=== PATIENT | male | born 1960 | race Caucasian/White ===

== ENCOUNTER → 2018-05-03 | Outpatient (CLI) | payer OTHER | END | disposition home or self-care (01) | LOC: RAD 09:59 | PROVIDERS: ATTEND Orthopaedic Surgery | DX: M51.35 Other intervertebral disc degeneration, thoracolumbar region (principal); M51.37 Other intervertebral disc degeneration, lumbosacral region; M48.05 Spinal stenosis, thoracolumbar region; M48.07 Spinal stenosis, lumbosacral region; M41.86 Other forms of scoliosis, lumbar region; G95.89 Other specified diseases of spinal cord | CPT/HCPCS: 72110 ==

== ENCOUNTER → 2020-01-25 | Outpatient (CLI) | payer OTHER ==
[~2020-01-25] MED LIST: ALLO300T PO; AMLO1CAP3 PO; METO25TA91 PO
== END | disposition home or self-care (01) ==
LOC: STAR 09:52
PROVIDERS: ATTEND Anesthesiology
DX: Z01.812 Encounter for preprocedural laboratory examination (principal); Z20.828 Contact with and (suspected) exposure to other viral communicable diseases
CPT/HCPCS: 36415; 87635

== ENCOUNTER → 2020-01-25 | Outpatient (CLI) | payer OTHER ==
[~2020-01-25] MED LIST changes: +OMNIPAQUE 350 MG/ML, 150 ML BOTTLE ONE
== END | disposition home or self-care (01) ==
LOC: CFH 08:54
PROVIDERS: ATTEND Internal Medicine Cardiovascular Disease
DX: I48.91 Unspecified atrial fibrillation (principal)
CPT/HCPCS: 71046; 75572; Q9967

== ENCOUNTER 2020-01-30 06:18 | Observation (INO) | payer OTHER ==
[~2020-01-30] VITALS: Ht 175.3 cm; Wt 115.7 kg
[2020-01-30] MEDS ORDERED: SODIUM CHLORIDE 0.9% 1,000 ML IV SCH ×2 (06:37→07:00)
[2020-01-30] MEDS ORDERED: METO25TA91 PO (06:45)
[2020-01-30 06:55] VITALS: BP 128/86
[2020-01-30] MEDS ORDERED: ALLO300T PO (07:01)
[2020-01-30] MEDS ORDERED: AMLO1CAP3 PO (07:01)
[2020-01-30] MEDS ORDERED: FENTANYL PF 250 MCG/5ML ONE ×2 (07:52→10:52)
[2020-01-30] MEDS ORDERED: MIDAZOLAM 1 MG/ML, 2ML ONE (07:52)
[2020-01-30] MEDS ORDERED: DEXAMETHASONE 4 MG/ML, 1ML ONE ×2 (07:53→10:52)
[2020-01-30] MEDS ORDERED: ROCURONIUM 10 MG/ML,10ML ONE (07:54)
[2020-01-30] MEDS ORDERED: PROPOFOL 10 MG/ML, 20ML ONE (07:55)
[2020-01-30] MEDS ORDERED: SUGAMMADEX 200 MG/2 ML IVPush ONE (07:58)
[2020-01-30] MEDS ORDERED: EPHEDRINE 50 MG/ML, 1ML ONE (07:58)
[2020-01-30] MEDS ORDERED: LIDOCAINE 2%, 20ML ONE (08:21)
[2020-01-30] MEDS ORDERED: SUCCINYLCHOLINE 20 MG/ML, 10ML ONE (08:53)
[2020-01-30] MEDS ORDERED: HEPARIN 1,000 UNITS/ML, 10ML ONE ×4 (08:53→11:33)
[2020-01-30] MEDS ORDERED: ONDANSETRON 2MG/ML, 2ML ONE ×2 (10:52)
[2020-01-30] MEDS ORDERED: RIVAROXABAN 20 MG TABLET ONE (11:55)
[2020-01-30] MEDS ORDERED: ACETAMINOPHEN 325 MG TABLET PO PRN ×2 (12:00→12:30)
[2020-01-30] MEDS ORDERED: RIVAROXABAN 20 MG TABLET PO SCH (12:00)
[2020-01-30] MEDS ORDERED: PROMETHAZINE 12.5 MG SUPP PR PRN (12:30)
[2020-01-30] MEDS ORDERED: EPHEDRINE 50 MG/ML, 1ML IVPush PRN (12:30)
[2020-01-30] MEDS ORDERED: MEPERIDINE/PF 25MG/0.5ML IVPush PRN (12:30)
[2020-01-30] MEDS ORDERED: HYDROmorphone 1 MG/ML, 1ML INJ IVPush PRN (12:30)
[2020-01-30] MEDS ORDERED: DIAZEPAM 5 MG/ML, 2ML IVPush PRN (12:30)
[2020-01-30] MEDS ORDERED: DIPHENHYDRAMINE 50 MG/ML, 1ML IVPush PRN (12:30)
[2020-01-30] MEDS ORDERED: ALBUTEROL SULFATE 2.5 MG/3 ML NPPB PRN (12:30)
[2020-01-30] MEDS ORDERED: FENTANYL PF 100 MCG/2ML IV PRN (12:30)
[2020-01-30] MEDS ORDERED: PROMETHAZINE 25 MG/ML, 1ML IVPush PRN (12:30)
[2020-01-30] MEDS ORDERED: OXYcodone 5 MG/5 ML ORAL.SOL UDC PO PRN (12:30)
[2020-01-30] MEDS ORDERED: LABETALOL 5MG/ML, 20ML IV PRN (12:30)
[2020-01-30] MEDS ORDERED: hydrALAzine 20 MG/ML, 1ML IV PRN (12:30)
[2020-01-30] MEDS ORDERED: MIDAZOLAM 1 MG/ML, 2ML IV PRN (12:30)
[2020-01-30] MEDS ORDERED: ONDANSETRON 2MG/ML, 2ML IVPush PRN (12:30)
[2020-01-30] MEDS ORDERED: RIVAROXABAN 20 MG TABLET PO ONE (13:34)
[2020-01-30 14:28] LABS: CREATININE 1.24 mg/dL (0.7-1.3)
[2020-01-30 15:54] VITALS: BP 100/65
[2020-01-30] MEDS ORDERED: HYDROcodone/APAP 5/325 TABLET ONE (15:59)
[2020-01-30] MEDS: HYDROcodone/APAP 5/325 TABLET PO PRN ×2 (16:03→20:16)
[2020-01-30 18:38] VITALS: BP 111/68
[2020-01-30] MEDS: COLCHICINE 0.6 MG CAPSULE PO SCH (20:15)
[2020-01-31 00:40] VITALS: BP 115/66
[2020-01-31 06:33] VITALS: BP 114/77
[2020-01-31] MEDS ORDERED: RIVAROXABAN 20 MG TABLET PO SCH (08:00)
[2020-01-31] MEDS: HYDROcodone/APAP 5/325 TABLET PO PRN (08:00)
[2020-01-31] MEDS: COLCHICINE 0.6 MG CAPSULE PO SCH (08:01)
[2020-01-31] MEDS ORDERED: ALLOPURINOL 300 MG TABLET PO SCH (09:00)
[2020-01-31] MEDS ORDERED: METOPROLOL SUCCINATE 25 MG TAB.ER.24H PO SCH (09:00)
[2020-01-31] MEDS ORDERED: BENAZEPRIL 20 MG TABLET PO SCH (09:00)
[2020-01-31] MEDS ORDERED: [UNRECOGNIZED DRUG - OTHER] PO SCH (09:00)
[2020-01-31] MEDS ORDERED: AMLODIPINE 5 MG TABLET PO SCH (09:00)
[2020-01-31] MEDS ORDERED: BENAZEPRIL PO SCH (09:00)
[2020-01-31] MEDS ORDERED: AMLODIPINE BESYLATE PO SCH (09:00)
[2020-01-31] MEDS ORDERED: ACET325T26 PO (11:03)
[2020-01-31] MEDS ORDERED: COLC0.6C3 PO (11:03)
[2020-01-31] MEDS ORDERED: RIVA20TA PO (11:03)
[2020-01-31] MEDS ORDERED: BENA20TA54 PO (11:03)
[2020-01-31 12:24] VITALS: BP 113/76
== END 2020-01-31 14:50 | disposition home or self-care (01) ==
LOC: CACL 06:18 → ORIP 11:56 → 5SO 13:32 → DCLOUNGE 01-31 14:41
PROVIDERS: ADMIT Internal Medicine Cardiovascular Disease; ATTEND Internal Medicine Cardiovascular Disease
DX: I48.0 Paroxysmal atrial fibrillation (principal); I10 Essential (primary) hypertension; E66.9 Obesity, unspecified; M10.9 Gout, unspecified; Z79.899 Other long term (current) drug therapy; Z79.01 Long term (current) use of anticoagulants
CPT/HCPCS: 82565; 85347; 93306; 93312; 93321; 93325; 93613; 93656; 93662; C1730; C1759; C1766; C1769; C1893; C1894; C2630; G0378; J0330; J1100; J1644; J2250; J2405; J2704; J3010; J3490

== ENCOUNTER → 2020-12-19 | Outpatient (CLI) | payer OTHER ==
[~2020-12-19] MED LIST changes: +ACET325T26 PO; +BENA20TA54 PO; +COLC0.6C3 PO; -OMNIPAQUE 350 MG/ML, 150 ML BOTTLE ONE; +RIVA20TA PO
== END | disposition home or self-care (01) ==
LOC: CFH 09:10
PROVIDERS: ATTEND Nurse Practitioner
DX: M51.36 Other intervertebral disc degeneration, lumbar region (principal); M41.86 Other forms of scoliosis, lumbar region; M48.061 Spinal stenosis, lumbar region without neurogenic claudication; M25.78 Osteophyte, vertebrae; M47.816 Spondylosis without myelopathy or radiculopathy, lumbar region
CPT/HCPCS: 72131